=== PATIENT | female | born 1995 | race Hispanic/Latino ===

== ENCOUNTER 2017-02-05 07:39 | Emergency (ER) | payer OTHER ==
[~2017-02-05] VITALS: Ht 152.4 cm; Wt 63.5 kg
[2017-02-05 07:48] VITALS: BP 126/69
[2017-02-05] MEDS ORDERED: PRENTAB7 PO (07:54)
== END 2017-02-05 08:35 | disposition admitted as inpatient to this hospital (09) ==
LOC: M ED 08:22
DX: O9A.213 Injury, poisoning and certain other consequences of external causes complicating pregnancy, third trimester (principal); R10.2 Pelvic and perineal pain; Z3A.34 34 weeks gestation of pregnancy; V49.60XA Unspecified car occupant injured in collision with unspecified motor vehicles in traffic accident, initial encounter; Y92.410 Unspecified street and highway as the place of occurrence of the external cause

== ENCOUNTER 2017-02-05 08:41 | Outpatient (CLI) | payer OTHER ==
[~2017-02-05] VITALS: Ht 152.4 cm; Wt 62.0 kg
[~2017-02-05 08:41] MED LIST: PRENTAB7 PO
[2017-02-05 08:51] VITALS: BP 129/76
[2017-02-05 10:00] VITALS: BP 108/66
[2017-02-05 11:52] LABS: MEAN CORPUSCULAR HEMOGLOBIN 30.6 pg (27.0-33.0); MEAN CORPUSCULAR HGB CONC 34.2 g/dl (32.0-36.5); MEAN CORPUSCULAR VOLUME 89.4 fl (80.0-96.0); RED CELL DISTRIBUTION WIDTH 12.8 % (11.5-14.5); WHITE BLOOD COUNT 11.2 K/mm3 (4.0-10.0)
[2017-02-05 12:53] LABS: INR 0.88
== END 2017-02-05 13:50 | disposition home or self-care (01) ==
LOC: M LDO 08:41
PROVIDERS: ATTEND Advanced Practice Midwife
DX: Z04.3 Encounter for examination and observation following other accident (principal); V43.52XA Car driver injured in collision with other type car in traffic accident, initial encounter; Y92.138 Other place on military base as the place of occurrence of the external cause; Y93.9 Activity, unspecified; Y99.9 Unspecified external cause status; Z3A.34 34 weeks gestation of pregnancy

== ENCOUNTER 2017-03-18 15:02 | Inpatient (IN) | payer OTHER ==
[~2017-03-18] VITALS: Ht 152.4 cm; Wt 67.0 kg
[2017-03-18] VITALS (7 sets, daily range): BP systolic 119–142; BP diastolic 67–81
[2017-03-18] MEDS ORDERED: LACTATED RINGER'S 1000 ML IV STA (17:28)
[2017-03-18 17:52] LABS: MEAN CORPUSCULAR HEMOGLOBIN 31.7 pg (27.0-33.0); MEAN CORPUSCULAR HGB CONC 35.1 g/dl (32.0-36.5); MEAN CORPUSCULAR VOLUME 90.1 fl (80.0-96.0); RED CELL DISTRIBUTION WIDTH 13.2 % (11.5-14.5); WHITE BLOOD COUNT 13.4 K/mm3 (4.0-10.0)
--- NOTE | 2017-03-18 18:49 | HPEPDOC ---
Obstetrical History & Physical General Date of Admission March 18, 2017 at 16:18 History of Present Illness 20 y/o with 2 days of increasing d/c. Pos FM but decreased, no LOF/VB. At 1400 today had a large gush of watery fluid with small ant fluid coming out since. uncomplicated. Chief Complaint: Contractions, term, LOF, term Care Care: Good Care Dating Final EDC by: 1st trimester (US) (done 4OCT) Past Medical History Past Obstetrical History : Past Obstetrical History: Multigravida [employer] History: Spontaneous (x1) Past Medical History Medical History denies Surgical History: Denies/None Family History Significant Family History: No pertinent family hx Social History Marital Status: Family situation: Spouse/partner home Psychosocial History: No pertinent psych hx * Smoker: non-smoker Alcohol: Denies Drugs: denies Abuse Violence Screening Have you been hit/kicked/slapp: No Have you been sexually assault: No Imunizations Tdap status: current Influenza Status: current Allergies Coded Allergies: No Known Allergies (Unverified , 02/05/17) Medications Miscellaneous Medications Multivitamins/ ( Vitamins 28-0.8 mg) 1 Tab Tab, 1 TAB PO Physical Examination Physical Examination GENERAL: Alert and oriented times three. ABDOMEN: Gravid and non-tender to touch. FETUS: vertex (VTX) by sterile vaginal examination, 3/75/-2 at 1600. SSE with neg valsalva, pooling, but pos ferning and nitr EXTREMITIES: No edema. Vital Signs/I&O Vital Signs Date Time Temp Pulse Resp B/P (MAP) Pulse Ox O2 Delivery O2 Flow Rate FiO2 03/18/17 17:41 88 132/80 (97) 03/18/17 16:14 16 03/18/17 15:16 98.2 Laboratory Data 24H LABS Laboratory Tests 2 03/18/17 17:35: CBC/BMP Laboratory Tests 03/18/17 17:35 Red Blood Count 4.15, Mean Corpuscular Volume 90.1, Mean Corpuscular Hemoglobin 31.7, Mean Corpuscular Hemoglobin Concent 35.1, Red Cell Distribution Width 13.2 Pertinent Laboratoy Data Blood Type: O+ RBC Antibody Screen: Negative HIV: Negative Hepatitis B: Negative Hepatitis C: Unknown Rapid Plasma Reagin: Nonreactive Rubella: Immune Varicella: Immune Chlamydia/Gonorrhea: Negative Group B Streptococcus: Negative Quad Screen Test: Negative Cystic Fibrosis: Negative Glucose Tolerance Test: 91 Anatomy Ultrasound Placenta Location: Anterior Normal Anatomy: Yes Placenta Previa: No Assessment Variability: Moderate Accelerations: Positive Decelerations: None Tocometer Contractions: Yes Frequency: regular, irregular Assessment/Plan Assessment SROM likelytoday at 1600. Ferning noted on SSE. Plan Admit and orient. Mentally Retarded Teacher and consent. Diet: clrs Group B Streptococcus (GBS) [negative]. Labs and intravenous (IV) per unit protocol. Counseled on Pitocin and induction of labor (IOL). Lactated Ringers (LR): Bolus 500 mL Anticipate normal spontaneous delivery () C-S as appropriate. Recheck at ~2000, if no signif change will add pitocin Sessions SESSIONS,RED Calvert MD March 18, 2017 18:49
[2017-03-18] MEDS ORDERED: OXYTOCIN 30 UNITS IN 0.9% NaCl 500ML IV BAG (J2590) As Ordered ONE (21:09)
[2017-03-18] MEDS ORDERED: LR 1,000 ML IV SCH (21:22)
--- NOTE | 2017-03-18 21:25 | IPNPDOC ---
Text Note Date of Service The patient was seen on 03/18/17. NOTE ~2100 Prog note NST Cat 1 Cx with minimal change. Will start pitocin. Sessions VS,Kale, I+O VSKale, I+O Laboratory Tests 03/18/17 17:35 Red Blood Count 4.15, Mean Corpuscular Volume 90.1, Mean Corpuscular Hemoglobin 31.7, Mean Corpuscular Hemoglobin Concent 35.1, Red Cell Distribution Width 13.2 Vital Signs Date Time Temp Pulse Resp B/P (MAP) Pulse Ox O2 Delivery O2 Flow Rate FiO2 03/18/17 21:18 98.7 16 03/18/17 21:17 82 129/69 (89) SESSIONS,RED Calvert MD March 18, 2017 21:25
[2017-03-18] MEDS ORDERED: OXYTOCIN DRIP 30 UNITS in APPROPRIATE DILUENT 1 EA IV SCH (21:30)
[2017-03-19] VITALS (34 sets, daily range): BP systolic 98–148; BP diastolic 52–86
[2017-03-19] MEDS ORDERED: FENTANYL 2MCG/ML ROPIVACAINE 0.2% IN 0.9% NACL 200ML IVBAG As Ordered ONE (00:53)
[2017-03-19] MEDS ORDERED: ePHEDrine SULFATE 25 MG/5 ML(5MG/ML) SYRINGE IV PRN (00:59)
[2017-03-19] MEDS ORDERED: diphenhydrAMINE INJ 50MG/ML VIAL (J1200) IV PRN (00:59)
[2017-03-19] MEDS ORDERED: FENTANYL/ROPIVACAINE/NACL BAG 200 ML EPIDURAL SCH (00:59)
[2017-03-19] MEDS ORDERED: LACTATED RINGER'S 1000 ML IV PRN (00:59)
[2017-03-19] MEDS ORDERED: EPIDURAL/PCA KEYS XX PRN (00:59)
[2017-03-19] MEDS ORDERED: NALOXONE INJ 0.4 MG/1 ML VIAL (J2310) IV PRN (00:59)
[2017-03-19] MEDS ORDERED: ONDANSETRON 4MG/2ML VIAL (J2405) IV PRN (00:59)
[2017-03-19] MEDS ORDERED: REFRIGERATOR IV KEYS XX PRN (00:59)
[2017-03-19] MEDS ORDERED: EPIDURAL COMMENT XX SCH (00:59)
--- NOTE | 2017-03-19 01:05 | IPNPDOC ---
Text Note Date of Service The patient was seen on 03/19/17. NOTE FHT Cat 1, on 8 mu/min pitocin Forebag that I felt previously just ruptured, pain is increasing, desires an epidural Cx checked, no change, /2 Check in ~4 hrs, sooner prn Watch tracing closely and incr/decr pitocin per SOP D/W Tamiko, RN Sessions VS,Kale I+O VS, Kale I+O Laboratory Tests 03/18/17 17:35 Red Blood Count 4.15, Mean Corpuscular Volume 90.1, Mean Corpuscular Hemoglobin 31.7, Mean Corpuscular Hemoglobin Concent 35.1, Red Cell Distribution Width 13.2 Vital Signs Date Time Temp Pulse Resp B/P (MAP) Pulse Ox O2 Delivery O2 Flow Rate FiO2 03/18/17 23:43 98.0 16 03/18/17 23:42 74 125/81 (96) I&O- Last 24 Hours up to 6 AM 03/19/17 06:00 Intake Total 500 ml Balance 500 ml NAOMY,RED Calvert MD March 19, 2017 01:04
[2017-03-19] MEDS ORDERED: ePHEDrine SULFATE 25 MG/5 ML(5MG/ML) SYRINGE As Ordered ONE (01:46)
--- NOTE | 2017-03-19 05:43 | IPNPDOC ---
Text Note Date of Service The patient was seen on 03/19/17. NOTE FHT Cat 1 RN check at 0330 /-2 Now C/C and pushing Sessions VS,Kale, I+O VSKale I+O Laboratory Tests 03/18/17 17:35 Red Blood Count 4.15, Mean Corpuscular Volume 90.1, Mean Corpuscular Hemoglobin 31.7, Mean Corpuscular Hemoglobin Concent 35.1, Red Cell Distribution Width 13.2 Vital Signs Date Time Temp Pulse Resp B/P (MAP) Pulse Ox O2 Delivery O2 Flow Rate FiO2 03/19/17 03:54 98.2 16 03/19/17 03:47 104 101/59 (73) I&O- Last 24 Hours up to 6 AM 03/19/17 05:59 Intake Total 500 ml Balance 500 ml SESSIONS,RED Calvert MD March 19, 2017 05:43
[2017-03-19] MEDS ORDERED: OXYTOCIN DRIP 30 UNITS in APPROPRIATE DILUENT 1 EA IV SCH (06:14)
[2017-03-19] MEDS ORDERED: METOCLOPRAMIDE INJ 10MG/2ML VIAL (J2765) IV PRN (06:15)
[2017-03-19] MEDS ORDERED: IBUPROFEN 800 MG TAB PO PRN (06:15)
[2017-03-19] MEDS ORDERED: ACETAMINOPHEN TAB 650MG DOSE (2X325MG) PO PRN (06:15)
[2017-03-19] MEDS ORDERED: RHOGAM 300 MCG (1500 IU) INJ (J2790) IM SCH (06:15)
[2017-03-19] MEDS ORDERED: MEASLES,MUMPS,RUBELLA VACCINE INJ (MMR-II) (90707) SC SCH (06:15)
--- NOTE | 2017-03-19 06:18 | DNPDOC ---
[facility] Delivery Note Delivery Note DATE OF DELIVERY: March 18, 2017 at 16:18 PREDELIVERY DIAGNOSIS: 39 6/7 weeks' gestation and labor. POST DELIVERY DIAGNOSIS: Delivered. PROCEDURE: Spontaneous vaginal delivery/ section LODE MINER: Dr. Moralez ANESTHESIA: Epidural ESTIMATED BLOOD LOSS: 200 mL. FINDINGS: 7pound 5ounce male infant, Score 9/10 DELIVERY SUMMARY: Pushed for less than an hour, excellent effort. Vtx over intact perineum and ant/post shoulders w/o delay. Good tone, to mother's abd. Cord C/C. Cord blood. Placenta intact with traction, massage, fundus firm, pit going, no lacs. Sessions MD MORALEZ,RED Calvert MD March 19, 2017 06:18
[2017-03-19] MEDS: PRENATAL VITAMIN TAB PO SCH (09:00)
[2017-03-19] MEDS: DOCUSATE SODIUM 100 MG CAP PO SCH ×2 (09:00→20:57)
[2017-03-20 06:13] VITALS: BP 107/57
[2017-03-20] MEDS: PRENATAL VITAMIN TAB PO SCH (08:39)
[2017-03-20] MEDS: DOCUSATE SODIUM 100 MG CAP PO SCH ×2 (08:39→21:48)
[2017-03-20 17:40] VITALS: BP 123/78
[2017-03-21 06:16] VITALS: BP 131/65
[2017-03-21] MEDS ORDERED: ACET50TA PO (08:44)
[2017-03-21] MEDS ORDERED: IBUP-1114 PO (08:44)
[2017-03-21] MEDS ORDERED: COLA100C3 PO (08:44)
[2017-03-21] MEDS: DOCUSATE SODIUM 100 MG CAP PO SCH (09:35)
[2017-03-21] MEDS: PRENATAL VITAMIN TAB PO SCH (09:35)
--- NOTE | 2017-03-21 15:39 | DSES ---
DATE OF ADMISSION: 03/18/2017 DATE OF DISCHARGE: 03/21/2017 This lady is a 21-year-old 2 now para 1 admitted at 39 and 6 weeks of gestation with loss of fluid and contractions. She had a spontaneous vaginal delivery of male, 7 pounds 5 ounces, of 9 and 10 at one and five minutes respectively. On discharge we discussed phlebitis, cystitis, mastitis, endometritis, and cellulitis, diet, exercise, pain management, perineal, breast and wound care. She is normocephalic, atraumatic. Neck: Full range of motion. Pupils equal and reactive to light. Chest is clear bilaterally to bases. No wheezes or rhonchi. No CVA tenderness. Uterus 2 below. Lochia is moderate. Perineum is intact. No rashes, lesions or pruritus. No arthralgia or myalgia. No complaints of cough, wheezes, shortness of breath or dyspnea on exertion. No chest pain, not bleeding. Neuro complete. No urgency, frequency or incontinence. No nausea, vomiting, diarrhea or constipation. No diabetic issues. No NOODLE MAKER issues. PAST MEDICAL AND SURGICAL HISTORY: Unremarkable. FAMILY HISTORY: Noncontributory. SOCIAL HISTORY: Does not smoke or drink, abuse drugs. She is in the [employer] and she is . There is no domestic violence. On discharge her blood pressure is 131/65, respirations are 18, pulse 72 and temperature 98.6. Her admitting hemoglobin was 13.1, hematocrit 37.4, platelets are 251. In summary we have a term gestation, delivered a live male infant for discharge. Followup in the office in six weeks' time.
--- NOTE | 2017-03-24 10:34 | IPN ---
DATE: 03/18/2017 and requested circumcision of their male infant. After discussing the risks and benefits of circumcision, the medical and the nonmedical indications, the penile block and aftercare, answered all questions. Expressed understanding of the penile block and aftercare, risks and benefits, signed and witnessed the consent form. We await the clearance by the registered nurse ambulatory.
== END 2017-03-21 10:50 | disposition home or self-care (01) | DRG 775 ==
LOC: M LDO 15:02 → M LDI 16:18 → M OBS 03-19 07:50
PROVIDERS: ADMIT Obstetrics & Gynecology; ATTEND Obstetrics & Gynecology
PROC: 10E0XZZ Delivery of Products of Conception, External Approach (ICD-10-PCS; principal; 2017-03-18)
DX: O80 Encounter for full-term uncomplicated delivery (principal); Z37.0 Single live birth; Z3A.39 39 weeks gestation of pregnancy

== ENCOUNTER 2018-07-22 09:28 | Day surgery (SDC) | payer OTHER ==
[2018-07-22 10:20] LABS: CONTROL LINE UCG INT CTR LINE PRESENT; URINE PREG TEST NEGATIVE (NEGATIVE)
[2018-07-22] MEDS ORDERED: LIDOCAINE 2% INJ 100 MG/5 ML SDV (FOR ANES.) As Ordered (11:08)
[2018-07-22] MEDS ORDERED: fentaNYL 100 MCG/2 ML INJECTION (J3010) As Ordered ×2 (11:08→12:49)
[2018-07-22] MEDS ORDERED: PROPOFOL 200 MG/20 ML VIAL As Ordered (11:08)
[2018-07-22] MEDS ORDERED: MIDAZOLAM INJ 2 MG/2 ML VIAL (J2250) As Ordered (11:08)
[2018-07-22] MEDS ORDERED: ONDANSETRON 4MG/2ML VIAL (J2405) As Ordered (11:11)
[2018-07-22] MEDS ORDERED: dexameTHASONE 4 MG/ML 1ML VIAL (J1100) As Ordered (11:11)
[2018-07-22] MEDS: LIDOCAINE W/EPINEPHRINE 1% 20ML VIAL As Ordered (12:54)
[2018-07-22] MEDS: BACITRACIN OINT 30GM As Ordered (12:54)
[2018-07-22] MEDS ORDERED: ACETAMINOPH W/CODEINE #3 TAB UD PO (13:30)
[2018-07-22] MEDS ORDERED: LR 1,000 ML IV (13:30)
[2018-07-22] MEDS ORDERED: ONDANSETRON 4MG/2ML VIAL (J2405) IV (13:45)
[2018-07-22] MEDS ORDERED: fentaNYL 100 MCG/2 ML INJECTION (J3010) IV (13:45)
[2018-07-22] MEDS ORDERED: LACTATED RINGERS IV (13:45)
[2018-07-22] MEDS ORDERED: PERCOCET 5MG/325MG TAB PO (13:45)
== END 2018-07-22 14:50 | disposition home or self-care (01) ==
LOC: M SDC 09:28
DX: Q18.1 Preauricular sinus and cyst (principal)
CPT/HCPCS: 42815

== ENCOUNTER 2019-03-11 06:59 | Day surgery (SDC) | payer OTHER ==
[~2019-03-11] VITALS: Ht 152.4 cm; Wt 59.0 kg
[~2019-03-11 06:59] MED LIST changes: +COLA100C5 PO; +DULO1CAP3 PO; +IBUP-1114 PO; +MAPA500T2 PO; +MULTCAP PO; +UNIS25TA3 PO
[2019-03-11 07:31] LABS: HEMATOCRIT 43.1 % (36.0-47.0); HEMOGLOBIN 14.4 g/dl (12.0-15.5); MEAN CORPUSCULAR HGB CONC 33.4 g/dl (32.0-36.5); MEAN CORPUSCULAR VOLUME 89.8 fl (80.0-96.0); PLATELET COUNT, AUTOMATED 321 10^3/uL (150-450); WHITE BLOOD COUNT 6.4 10^3/uL (4.0-10.0)
[2019-03-11] MEDS ORDERED: ESTROGENS VAGINAL CREAM 30GM As Ordered ONE (07:53)
[2019-03-11] MEDS ORDERED: LIDOCAINE 1% SDV INJ 30 ML VIAL As Ordered ONE (07:53)
[2019-03-11] MEDS ORDERED: BUPIVACAINE HCL 0.25% 30 ML VIAL As Ordered ONE (07:54)
[2019-03-11] MEDS ORDERED: PROPOFOL 200 MG/20 ML VIAL As Ordered ONE (07:57)
[2019-03-11] MEDS ORDERED: LIDOCAINE 2% INJ 100 MG/5 ML SDV (FOR ANES.) As Ordered ONE (07:57)
[2019-03-11] MEDS ORDERED: fentaNYL 100 MCG/2 ML INJECTION (J3010) As Ordered ONE ×2 (07:58→09:42)
[2019-03-11] MEDS ORDERED: MIDAZOLAM INJ 2 MG/2 ML VIAL (J2250) As Ordered ONE (07:58)
[2019-03-11 08:04] LABS: HCG, SERUM QUALITATIVE NEGATIVE (NEGATIVE)
[2019-03-11] MEDS ORDERED: dexameTHASONE 4 MG/ML 1ML VIAL (J1100) As Ordered ONE (08:32)
[2019-03-11] MEDS ORDERED: ONDANSETRON 4MG/2ML VIAL (J2405) As Ordered ONE (08:47)
[2019-03-11] MEDS ORDERED: KETOROLAC 60 MG/2 ML VIAL (J1885) As Ordered ONE (08:47)
[2019-03-11] MEDS: fentaNYL 100 MCG/2 ML INJECTION (J3010) IV PRN ×6 (09:40→10:05)
[2019-03-11] MEDS ORDERED: PERCOCET 5MG/325MG TAB As Ordered ONE (09:42)
[2019-03-11] MEDS ORDERED: ONDANSETRON 4MG/2ML VIAL (J2405) IV PRN (09:45)
[2019-03-11] MEDS ORDERED: METOCLOPRAMIDE INJ 10MG/2ML VIAL (J2765) IV PRN (09:45)
[2019-03-11] MEDS ORDERED: PERCOCET 5MG/325MG TAB PO PRN ×2 (09:45→10:15)
[2019-03-11] MEDS ORDERED: LR 1,000 ML IV SCH (09:45)
[2019-03-11] MEDS ORDERED: MEPERIDINE INJ 25 MG/ML VIAL (J2175) IV PRN (09:45)
[2019-03-11] MEDS ORDERED: KETOROLAC 30 MG/ML VIAL (J1885) As Ordered ONE (10:01)
[2019-03-11] MEDS ORDERED: KETOROLAC 30 MG/ML VIAL (J1885) IV ONE (10:15)
--- NOTE | 2019-03-11 10:47 | RO ---
DATE OF PROCEDURE: 03/11/2019 PREOPERATIVE DIAGNOSIS: Bilateral labial hypertrophy significantly impacting quality of life. POSTOPERATIVE DIAGNOSIS: Bilateral labial hypertrophy significantly impacting quality of life. PROCEDURE: Bilateral labioplasty. SURGEON: Shaheed Steele DO MOTION PICTURE CRITIC: None. ANESTHESIA: General anesthesia. FLUIDS: 800 mL lactated Ringer (LR). URINE OUTPUT: 60 mL via straight cath. ESTIMATED BLOOD LOSS (EBL): 10 mL. OPERATIVE FINDINGS: Significantly enlarged labia minora bilaterally measuring greater than 6 cm on each side. ANTIBIOTICS: None. COMPLICATIONS: None. DETAILED PROCEDURE DESCRIPTION: The risks, benefits, indications, and alternatives of the procedure were reviewed with the patient, and informed consent was obtained. The patient was taken to the operating room, where general anesthesia was obtained without difficulty. The patient was then placed in the lithotomy position using Vicente stirrups. An examination under anesthesia was then performed and was significant for the above-noted labial hypertrophic findings. The patient was then prepped and draped in the usual sterile fashion. A surgical time-out was then performed, and the patient's identity and planned procedure were verified with the operative team. The patient's bladder was drained first using in-and-out catheter. The bilateral labia minora were then identified and inspected. The decision was made to perform a wedge resection and then anastomosis of resected labial tissue on each side. The bilateral labia minora were then marked, and the surgical incision tracts were outlined with a pen. After marking, Marcaine was then injected at the base and at the superior apex of the labia minora on both sides. The left labia minora was isolated first. A V-shaped wedge resection of labial tissue along the previously-marked line was then made with the scalpel and finished with Metzenbaum scissors. This tissue was resected without difficulty and discarded off the operative field. Hemostasis was achieved with cautery and sutures. The raw edges of the labia from the wedge resection were then brought together, and the labia were sewn together with multiple interrupted sutures of 4-0 Vicryl that were nonlocking. Excellent hemostasis was achieved, and excellent cosmetic result was obtained. The patient's right labia was then identified, and the process of V-shaped wedge resection and anastomosis of the resected labial raw edges was repeated without difficulty. Inspection of both labia revealed excellent cosmesis, excellent reduction in labial size, and excellent hemostasis. Labial measurement after completion was less than 3cm on each side. Premarin cream was then applied to the operative edges and the suture sites of the labia bilaterally. All instruments were then confirmed to have been removed from the operative field. At the completion of the case, sponge, instrument, and needle counts were correct times two. The patient tolerated the procedure well and was taken to the postanesthesia care unit (PACU) in stable condition. SITA
[2019-03-11 11:42] VITALS: BP 110/63
== END 2019-03-11 12:01 | disposition home or self-care (01) ==
LOC: M SDC 06:59
PROVIDERS: ATTEND Obstetrics & Gynecology
DX: N90.60 Unspecified hypertrophy of vulva (principal); F41.9 Anxiety disorder, unspecified; Z79.899 Other long term (current) drug therapy
CPT/HCPCS: 36415; 56620; 84703; 85027; 88302; J0690; J1100; J1885; J2250; J2405; J3010